=== PATIENT | female | born 1985 | race Caucasian/White ===

== ENCOUNTER 2017-06-02 22:14 | Emergency (ER) | payer OTHER ==
[~2017-06-02] VITALS: Ht 160 cm; Wt 54.4 kg
--- NOTE | 2017-06-02 22:40 | ED GI/GU/ABDOMINAL COMPLAINT ---
History of Present Illness General Chief Complaint: Nausea, Vomiting, Diarrhea Stated Complaint: +NVD, X 6 HRS Source: patient Exam Limitations: no limitations Vital Signs & Intake/Output Vital Signs & Intake/Output Vital Signs Date Time Temp Pulse Resp B/P B/P Pulse O2 O2 Flow FiO2 Mean Ox Delivery Rate 06/03 004 98.4 88 18 130/76 100 Room Air 06/02 2219 98.3 105 18 139/83 100 ED Intake and Output 06/03 0000 06/02 1200 Intake Total 1000 Output Total 1 Balance 999 Intake, IV 1000 Output, 1 Emesis Patient 120 lb Weight Weight Reported by Patient Measurement Method Allergies Coded Allergies: No Known Allergies (06/02/17) Reconcile Medications Diphenoxylate HCl/Atropine (Lomotil 2.5-0.025 MG Tablet) 2.5 MG-0.025 MG TABLET 1-2 TAB PO 4 TIMES/DAY diarrhea ten...[id number] Ondansetron (Zofran Odt) 4 MG TAB.RAPDIS 1 TAB SL TID PRN nausea Triage Note: PT FROM HOME C/O N/V X5 HRS. PT STATES SHE BEGAN TO VOMIT AT 1700 TONIGHT, EVERY 10 MINS SINCE 1700 EPISODES OF VOMITING. PT STATES UNABLE TO KEEP DOWN PO LIQUIDS OR FOOD. PT IS RESTING ON BOWL FROM HOME TO DRY [place] IN. VSS. PT STATES 10/10 PAIN. PT STATES MID ABD PAIN FROM VOMIT, SORENESS, THAT IS NON RADIATING. Triage Nurses Notes Reviewed? yes ? n Is pt currently ? No Onset: Gradual Duration: hour(s): Timing: recent history Quality/Severity: cramping Location: generalized abdomen Radiation: no radiation Activities at Onset: eating Modifying Factors: Worsens With: vomiting. Associated Symptoms: nausea/vomiting HPI: 31 yo woman 6 hour history of nausea, vomiting diarrhea. "I ate brunch... some salmon... at a restaurant... a few hours later, I started vomiting and having diarrhea... Since then, I've been vomiting every 10 minutes and the diarrhea just pours out of me." She has no fever, chills, dysuria. She is otherwise well. Past History Travel History Traveled to [place] past 21 day No Medical History Any Pertinent Medical History? see below for history Neurological: NONE EENT: NONE Cardiovascular: NONE Respiratory: NONE Gastrointestinal: NONE Hepatic: NONE Renal: NONE Musculoskeletal: NONE Psychiatric: NONE Endocrine: NONE Surgical History Surgical History: none Psychosocial History What is your primary language Greek Tobacco Use: Never used Family History Hx Contributory? No Review of Systems Review of Systems Constitutional: Reports: no symptoms. EENTM: Reports: no symptoms. Respiratory: Reports: no symptoms. Cardiovascular: Reports: no symptoms. GI: Reports: no symptoms. Genitourinary: Reports: no symptoms. Musculoskeletal: Reports: no symptoms. Skin: Reports: no symptoms. Neurological/Psychological: Reports: no symptoms. Hematologic/Endocrine: Reports: no symptoms. Immunologic/Allergic: Reports: no symptoms. All Other Systems: Reviewed and Negative Physical Exam Physical Exam General Appearance: well developed/nourished, mild distress Head: atraumatic, normal appearance Eyes: Bilateral: normal appearance. Ears, Nose, Throat, Mouth: hearing grossly normal, moist mucous membrane Neck: normal inspection, supple, full range of motion Respiratory: normal breath sounds, chest non-tender, no respiratory distress, quiet respiration, lungs clear Cardiovascular: regular rate/rhythm Gastrointestinal: normal bowel sounds, soft, non-tender, no organomegaly Back: normal inspection Extremities: normal range of motion Neurologic/Psych: no motor/sensory deficits, awake, alert, oriented x 3 Skin: intact, normal color Core Measures ACS in differential dx? No Sepsis Present: No Sepsis Focused Exam Completed? No Progress Differential Diagnosis: food poisoning, viral syndrome vs other. Plan of Care: Orders Procedure Date/time Status LIPASE 06/03 2219 Complete HEPATIC FUNCTION PANEL 06/03 2219 Complete HUMAN BETA HCG SCREEN 06/03 2219 Complete CBC WITHOUT DIFFERENTIAL 06/03 2219 Complete BASIC METABOLIC PANEL 06/03 2219 Complete AMYLASE 06/03 2219 Complete Laboratory Tests 06/02/17 2247: Anion Gap 17 H, Estimated GFR > 60, BUN/Creatinine Ratio 18.8, Glucose 138 H, Calcium 10.5 H, Total Bilirubin 1.2, Direct Bilirubin 0.5 H, AST 30, ALT 45, Alkaline Phosphatase 123, Total Protein 8.1, Albumin 5.3 H, Amylase 51, Lipase 99, Total Beta HCG NEGATIVE, CBC w Diff NO MAN DIFF REQ, RBC 5.47 H, MCV 84.4, MCH 28.2, MCHC 33.4, RDW 13.3, MPV 9.8, Gran % 93.0 H, Lymphocytes % 1.7 L, Monocytes % 5.1, Eosinophils % 0.2, Basophils % 0, Absolute Granulocytes 11.2 H , Absolute Lymphocytes 0.2 L, Absolute Monocytes 0.6, Absolute Eosinophils 0, Absolute Basophils 0 Initial ED EKG: none Departure Departure Disposition: HOME OR SELF CARE Condition: Stable Clinical Impression Primary Impression: Nausea and vomiting Departure Forms: Customer Survey General Discharge Information Prescriptions: Current Visit Scripts Ondansetron (Zofran Odt) 1 TAB SL TID PRN nausea #10 TAB Diphenoxylate HCl/Atropine (Lomotil 2.5-0.025 MG Tablet) 1-2 TAB PO 4 TIMES/DAY #10 TAB ten...[id number] Comments 06/02/17, 23:43... pt feeling better.. labs consistent with vomiting/diarrhea... pt given supportive medications... safe for discharge.
[2017-06-02 23:04] LABS: ABSOLUTE BASOPHIL COUNT 0 /CUMM (0.0-0.2); ABSOLUTE EOSINOPHIL COUNT 0 /CUMM (0.0-0.7); ABSOLUTE GRANULOCYTE CT 11.2 /CUMM (1.4-6.5); ABSOLUTE LYMPH COUNT 0.2 /CUMM (1.2-3.4); ABSOLUTE MONOCYTE COUNT 0.6 /CUMM (0.10-0.60); BASOPHIL % 0 % (0.0-2.0); EOSINOPHIL % 0.2 % (0-5); HEMATOCRIT 46.2 % (37-47); MEAN CORPUSCULAR HGB 28.2 PG (27.0-31.0); MEAN CORPUSCULAR HGB CONC 33.4 G/DL (33.0-37.0); MEAN CORPUSCULAR VOLUME 84.4 FL (81.0-99.0); MEAN PLATELET VOLUME 9.8 FL (7.4-10.4); PLATELET COUNT 215 /CUMM (130-400); RBC DISTRIBUTION WIDTH 13.3 % (11.5-14.5); RED BLOOD CELL CT 5.47 /CUMM (4.20-5.40)
[2017-06-02] MEDS ORDERED: LOMOTIL 2.5-0.1 EACH PO (23:28)
[2017-06-02] MEDS ORDERED: ZOFRAN ODT4 M1 SL (23:28)
[2017-06-03 00:49] VITALS: BP 130/76
== END 2017-06-03 00:51 ==
LOC: ERH
PROVIDERS: Pediatrics
DX: R11.2 Nausea with vomiting, unspecified (principal)
CPT/HCPCS: 96374; 96375; J2405; J2550

== ENCOUNTER 2017-09-16 02:23 | Emergency (ER) | payer OTHER ==
[~2017-09-16] VITALS: Ht 160 cm; Wt 52.2 kg
[~2017-09-16 02:23] MED LIST: LOMOTIL 2.5-0.1 EACH PO; ZOFRAN ODT4 M1 SL
--- NOTE | 2017-09-16 03:03 | ED GENERAL ADULT ---
History of Present Illness General Chief Complaint: Nausea, Vomiting, Diarrhea Stated Complaint: PT C/O VOMITING X'S "FEW HRS" Source: patient Exam Limitations: no limitations Vital Signs & Intake/Output Vital Signs & Intake/Output Vital Signs Date Time Temp Pulse Resp B/P B/P Pulse O2 O2 Flow FiO2 Mean Ox Delivery Rate 09/16 0300 100 Room Air 09/16 0258 98.2 85 18 127/72 97 Room Air Allergies Coded Allergies: No Known Allergies (06/02/17) Reconcile Medications Diphenoxylate HCl/Atropine (Lomotil 2.5-0.025 MG Tablet) 2.5 MG-0.025 MG TABLET 1-2 TAB PO 4 TIMES/DAY diarrhea ten...[id number] Ondansetron (Zofran Odt) 4 MG TAB.RAPDIS 1 TAB SL TID PRN nausea Triage Note: TRIAGE: PATIENT TO ER FROM HOME REPORTING ?FOOD POISONING, "HERE 2 MONTHS AGO FOR SAME THING, WENT TO DINNER AT 5:30PM, BEEN THROWING/ +D UP SINCE 8:30/9PM." ATTEMPTED TO TAKE ANTINAUSEA MEDS AND ANTIDIARRHEAL AT HOME W/ NO RELIEF. Triage Nurses Notes Reviewed? yes Onset: Abrupt Duration: day(s): Timing: recent history : No Patient currently breastfeeds: No HPI: 09/16/17 31-year-old female presents to the emergency department with nausea vomiting and diarrhea. The patient states for the past 5 HOURS she's been having multiple episodes of vomiting and diarrhea. She is profoundly dehydrated. She denies any abdominal pain. She has no past medical or surgical history. No recent travel. No one else is sick. Past History Travel History Traveled to [place] past 21 day No Medical History Any Pertinent Medical History? see below for history Neurological: NONE EENT: NONE Cardiovascular: NONE Respiratory: NONE Gastrointestinal: NONE Hepatic: NONE Renal: NONE Musculoskeletal: NONE Psychiatric: NONE Endocrine: NONE Blood Disorders: NONE Cancer(s): NONE MANAGER EQUIPMENT/Reproductive: NONE Surgical History Surgical History: none Psychosocial History What is your primary language Amharic Tobacco Use: Never used Family History Hx Contributory? No Review of Systems Review of Systems Constitutional: Denies: fever. EENTM: Denies: visual changes. Respiratory: Denies: short of breath. Cardiovascular: Denies: chest pain. GI: Reports: diarrhea, nausea, vomiting. Denies: abdominal pain. Genitourinary: Reports: no symptoms. Musculoskeletal: Reports: no symptoms. Skin: Reports: no symptoms. Neurological/Psychological: Reports: no symptoms. Hematologic/Endocrine: Reports: no symptoms. Immunologic/Allergic: Reports: no symptoms. Physical Exam Physical Exam General Appearance: alert, awake, anxious Head: atraumatic, normal appearance Eyes: Bilateral: normal appearance, PERRL, EOMI. Ears, Nose, Throat: dry mucous membranes Neck: normal inspection, supple Respiratory: normal breath sounds, chest non-tender, no respiratory distress Cardiovascular: regular rate/rhythm Peripheral Pulses: 4+ radial (R), 4+ radial (L) Gastrointestinal: soft, non-tender Back: normal range of motion Extremities: normal inspection, normal range of motion, no edema Neurologic/Psych: no motor/sensory deficits, awake, alert, oriented x 3 Skin: intact, normal color, warm/dry Core Measures ACS in differential dx? No CVA/TIA Diagnosis: No Sepsis Present: No Sepsis Focused Exam Completed? No Progress Differential Diagnoses I considered the following diagnoses in my evaluation of the patient: [ Gastroenteritis, infectious diarrhea, inflammatory bowel disease, ulcerative colitis, Crohn's disease, viral syndrome] Plan of Care: Orders Procedure Date/time Status Add-on Test (ER Only) 09/16 0501 Active STOOL:R/O VIBRIO 09/16 0259 Active OVA AND PARASITE ANTIGENS 09/16 025 Active C.DIFFICILE 09/16 025 Active URINE 09/16 025 Complete COMPREHENSIVE METABOLIC PANEL 09/16 025 Complete CBC WITHOUT DIFFERENTIAL 09/16 025 Complete Current Medications Sig/Shawna Start time Last Medication Dose Stop Time Status Admin Sodium Chloride 1,000 ML BOLUS ONE 09/16 0445 AC 09/16 (Normal Saline 0.9%) 09/16 0544 0430 Laboratory Tests 09/16/17 0453: Urine Test NEGATIVE 09/16/17 0320: Anion Gap 13, Estimated GFR > 60, BUN/Creatinine Ratio 16.3, Glucose 135 H, Calcium 10.3 H, Total Bilirubin 0.5, AST 34, ALT 40, Alkaline Phosphatase 84, Total Protein 8.1, Albumin 5.0, Globulin 3.1, Albumin/Globulin Ratio 1.6, CBC w Diff NO MAN DIFF REQ, RBC 5.90 H, MCV 82.4, MCH 28.0, MCHC 34.0, RDW 12.6, MPV 8.8, Gran % 90.5 H, Lymphocytes % 4.0 L, Monocytes % 5.1, Eosinophils % 0.3, Basophils % 0.1, Absolute Granulocytes 10.0 H, Absolute Lymphocytes 0.4 L, Absolute Monocytes 0.6, Absolute Eosinophils 0, Absolute Basophils 0 Microbiology 09/16 258 STOOL: Cryptosporidium Antigen - ORD 09/16 258 STOOL: Giardia Antigen (ANGELI) - ORD 09/16 258 STOOL: Clostridium difficile Toxin A & B - ORD 09/16 258 STOOL: Vibrio Culture - ORD Initial ED EKG: none Departure Departure Disposition: STILL A PATIENT Condition: Stable Clinical Impression Primary Impression: Gastroenteritis Referrals: Unknown (PCP) Departure Forms: Customer Survey General Discharge Information Comments 09/16/17 5:30 AM Been remains nontender. Patient feels better after 2 L of IV fluid and antiemetics. We'll discharge on Zofran. Critical Care Note Critical Care Note Critical Care Time: non-applicable
[2017-09-16 03:35] LABS: ABSOLUTE BASOPHIL COUNT 0 /CUMM (0.0-0.2); ABSOLUTE EOSINOPHIL COUNT 0 /CUMM (0.0-0.7); ABSOLUTE LYMPH COUNT 0.4 /CUMM (1.2-3.4); ABSOLUTE MONOCYTE COUNT 0.6 /CUMM (0.10-0.60); BASOPHIL % 0.1 % (0.0-2.0); EOSINOPHIL % 0.3 % (0-5); GRANULOCYTE % 90.5 % (42.2-75.2); HEMATOCRIT 48.6 % (37-47); MEAN CORPUSCULAR VOLUME 82.4 FL (81.0-99.0); MEAN PLATELET VOLUME 8.8 FL (7.4-10.4); PLATELET COUNT 227 /CUMM (130-400); RBC DISTRIBUTION WIDTH 12.6 % (11.5-14.5)
[2017-09-16] MEDS ORDERED: ZOFRAN4 M2 PO ×2 (05:35→06:23)
[2017-09-16 05:46] VITALS: BP 123/46
== END 2017-09-16 06:20 ==
LOC: ERH 02:23
PROVIDERS: Internal Medicine Interventional Cardiology
DX: K52.9 Noninfective gastroenteritis and colitis, unspecified (principal)
CPT/HCPCS: 81025; 87015; 87045; 87328; 87329; 87899; 87899-59; 96374; 96375; J2405; J2550